=== PATIENT | male | born 1985 | race Caucasian/White ===

== ENCOUNTER 2017-08-12 07:18 | Emergency (ER) | payer OTHER ==
[2017-08-12 07:32] VITALS: BP 98/56
--- NOTE | 2017-08-12 07:49 | UC ---
Skin Complaint HPI - HPI Summary HPI Summary: painful left middle finger x 2 days no known injury , the finger is red , swollen, tender, - History of Current Complaint Chief Complaint: UCSkin Time Seen by Provider: 08/12/17 07:27 Stated Complaint: SKIN COMPLAINT Hx Obtained From: Patient Onset/Duration: Gradual Onset, Lasting Days - 2, Still Present Skin Exposure Onset/Duration: Days Ago - 2 Timing: Constant Onset Severity: Moderate Current Severity: Moderate Location: Discrete - left middle finger tip Character: Swelling, Pain, Redness, Raised, Painful Aggravating Factor(s): Touch Alleviating Factor(s): Nothing Associated Signs & Symptoms: Positive: Tenderness - Allergy/Home Medications Allergies/Adverse Reactions: Allergies Allergy/AdvReac Type Severity Reaction Status Date / Time No Known Allergies Allergy Verified 08/12/17 07:32 Home Medications: Home Medications Aleve 220mg 1 tab PO DAILY PRN 08/12/17 [History] Allopurinol TAB* [Zyloprim 300 MG TAB*] 300 mg PO SEE INSTRUCTIONS 08/12/17 [ History Confirmed 08/12/17] Review of Systems Constitutional: Negative Skin: Negative Eyes: Negative ENT: Negative Respiratory: Negative Is Patient Immunocompromised?: No All Other Systems Reviewed And Are Negative: Yes PMH/Surg Hx/FS Hx/Imm Hx - Additional Past Medical History Additional PMH: hx of gout - Surgical History Surgical History: None - Family History Known Family History: Negative: Diabetes - Social History Alcohol Use: Rare Substance Use Type: None Smoking Status (MU): Never Smoked Tobacco Physical Exam Triage Information Reviewed: Yes Appearance: Well-Appearing, No Pain Distress, Well-Nourished Vital Signs: Initial Vital Signs Temp 97.8 F 08/12/17 07:22 Pulse 48 08/12/17 07:22 Resp 18 08/12/17 07:22 BP 98/56 08/12/17 07:22 Vital Signs Reviewed: Yes Eyes: Positive: Conjunctiva Clear ENT: Positive: Normal ENT inspection, Hearing grossly normal, Pharynx normal Neck: Positive: Supple, Nontender, No Lymphadenopathy Respiratory: Positive: Chest non-tender, Lungs clear, Normal breath sounds Cardiovascular: Positive: RRR, No Murmur, Pulses Normal Skin: Positive: Other - + paronychia left 3rd finger , + tender, swollen , erythema Course/Dx - Diagnoses Provider Diagnoses: paronychia left middle finger Discharge - Discharge Plan Condition: Stable Disposition: HOME Prescriptions: Cephalexin CAP* [Keflex CAP*] 500 mg PO TID #21 cap Patient Education Materials: [place] (ED) Additional Instructions: follow up as needed
== END 2017-08-12 07:53 | disposition home or self-care (01) ==
LOC: UCCORT 07:18
DX: L03.012 Cellulitis of left finger (principal)
CPT/HCPCS: 99212; G0463